=== PATIENT | female | born 1995 | race Caucasian/White ===

== ENCOUNTER 2022-09-23 09:42 | Emergency (ER) | payer OTHER ==
[~2022-09-23] VITALS: Ht 167.6 cm; Wt 79.5 kg
[2022-09-23 11:44] LABS: COVID AG,FIA SOURCE NASAL SWAB
[2022-09-23 12:24] LABS: INFLUENZA TYPE A NEGATIVE FOR TYPE A (NEGATIVE); INFLUENZA TYPE B NEGATIVE FOR TYPE B (NEGATIVE)
[2022-09-23] MEDS ORDERED: BENZ-70 PO (13:27)
[2022-09-23 13:41] VITALS: BP 102/66
== END 2022-09-23 13:53 | disposition home or self-care (01) ==
LOC: EMS 09:47
DX: J40 Bronchitis, not specified as acute or chronic (principal); Z90.49 Acquired absence of other specified parts of digestive tract; Z20.822 Contact with and (suspected) exposure to COVID-19
CPT/HCPCS: 71046; 87430; 87804; 99284; 99285